=== PATIENT | female | born 1950 | race Caucasian/White ===

== ENCOUNTER → 2020-02-18 | Outpatient (CLI) | payer OTHER ==
[~2020-02-18] MED LIST: ASPI81CH; CODACE30 PO; FLUO20 PO; INDO25 PO; LOVA20 PO; OLAN7.5 PO; OMEG1CAP30 PO; [UNRECOGNIZED DRUG - SUPPLY] MC
== END | disposition home or self-care (01) ==
LOC: PLD 15:20 → LAB SHORT 15:20
DX: D37.030 Neoplasm of uncertain behavior of the parotid salivary glands (principal)
CPT/HCPCS: 88173

== ENCOUNTER → 2021-05-15 | Outpatient (CLI) | payer OTHER ==
[2021-05-15 14:25] LABS: BASOPHILS ABSOLUTE AUTO 0.05 K/mm3 (0.00-0.23); BASOPHILS PERCENT AUTO 1 % (0-2); EOSINOPHILS ABSOLUTE AUTO 0.08 K/mm3 (0.00-0.68); EOSINOPHILS PERCENT AUTO 1 % (0-6); Hematocrit 40.9 % (33.0-51.0); Hemoglobin 13.7 g/dL (11.5-16.0); IMMATURE GRAN ABSOLUTE AUTO 0.02 K/mm3 (0.00-0.10); IMMATURE GRAN PERCENT AUTO 0 % (0-1); LYMPHOCYTES PERCENT AUTO 26 % (21-46); MONOCYTES ABSOLUTE AUTO 0.53 K/mm3 (0.16-1.47); MONOCYTES PERCENT AUTO 8 % (4-13); Mean Corpuscular HGB 33.8 pg (26.0-34.0); Mean Corpuscular HGB Conc 33.5 g/dL (31.5-36.5); Mean Corpuscular Volume 101 fL (80-100); Mean Platelet Volume 9.8 fL (9.1-12.4); NEUTROPHILS ABSOLUTE AUTO 4.45 K/mm3 (1.96-9.15); NEUTROPHILS PERCENT AUTO 64 % (41-73); Platelet Count 350 K/mm3 (150-400); RDW Standard Deviation 48.4 fL (35.1-46.3); Red Blood Cell Count 4.05 M/mm3 (3.80-5.20); White Blood Cell Count 6.93 K/mm3 (4.00-11.30)
[2021-05-15 14:34] LABS: Alanine Aminotransfer (ALT/SGP 30 U/L (12-78); Albumin, Blood 3.8 g/dL (3.4-5.0); Albumin/Globulin Ratio 1.2 (0.8-1.8); Alk Phos 49 U/L (40-126); Anion Gap 9 mmol/L (6-16); Aspartate Aminotrans (AST/SGOT 34 U/L (12-37); Bilirubin, Total 0.6 mg/dL (0.1-1.0); Blood Urea Nitrogen 10 mg/dL (8-24); Bun/Creatinine Ratio 12.2 (12.0-20.0); CO2, Blood 28 mmol/L (21-32); Calcium, Blood 9.3 mg/dL (8.5-10.1); Chloride, Blood 102 mmol/L (98-108); Creatinine, Blood 0.82 mg/dL (0.40-1.00); Globulin, Blood 3.2 g/dL (2.2-4.0); Glomerular Filtration Rate >60 (60-); Glucose, Blood 91 mg/dL (70-99); Potassium, Blood 3.9 mmol/L (3.5-5.5); Sodium, Blood 139 mmol/L (136-145)
== END ==
LOC: LAB SHORT 14:20
PROVIDERS: Physician Assistant
DX: R42 Dizziness and giddiness (principal); N39.0 Urinary tract infection, site not specified
CPT/HCPCS: 80053; 85025

== ENCOUNTER 2021-05-22 07:56 | Observation (INO) | payer OTHER ==
[~2021-05-22] VITALS: Ht 154.9 cm; Wt 80.5 kg
[~2021-05-22 07:56] MED LIST changes: -FLUO20 PO; +FLUOXETINE HCL60 MG PO; -OMEG1CAP30 PO; +OMEGA 3 PO
[2021-05-22] MEDS ORDERED: Methocarbamol500 MG PO (08:12)
[2021-05-22 08:31] LABS: BASOPHILS ABSOLUTE AUTO 0.06 K/mm3 (0.00-0.23); BASOPHILS PERCENT AUTO 1 % (0-2); EOSINOPHILS ABSOLUTE AUTO 0.09 K/mm3 (0.00-0.68); EOSINOPHILS PERCENT AUTO 1 % (0-6); Hematocrit 41.3 % (33.0-51.0); Hemoglobin 13.3 g/dL (11.5-16.0); IMMATURE GRAN ABSOLUTE AUTO 0.03 K/mm3 (0.00-0.10); IMMATURE GRAN PERCENT AUTO 0 % (0-1); LYMPHOCYTES ABSOLUTE AUTO 0.94 K/mm3 (0.84-5.20); LYMPHOCYTES PERCENT AUTO 8 % (21-46); MONOCYTES ABSOLUTE AUTO 0.72 K/mm3 (0.16-1.47); MONOCYTES PERCENT AUTO 6 % (4-13); Mean Corpuscular HGB 33.3 pg (26.0-34.0); Mean Corpuscular HGB Conc 32.2 g/dL (31.5-36.5); Mean Corpuscular Volume 103 fL (80-100); Mean Platelet Volume 10.1 fL (9.1-12.4); NEUTROPHILS ABSOLUTE AUTO 10.53 K/mm3 (1.96-9.15); NEUTROPHILS PERCENT AUTO 85 % (41-73); Platelet Count 327 K/mm3 (150-400); RDW Coefficient Variation 13.2 % (11.7-14.2); RDW Standard Deviation 51.3 fL (35.1-46.3); White Blood Cell Count 12.37 K/mm3 (4.00-11.30)
[2021-05-22 08:55] LABS: Alanine Aminotransfer (ALT/SGP 22 U/L (12-78); Albumin, Blood 3.3 g/dL (3.4-5.0); Albumin/Globulin Ratio 0.8 (0.8-1.8); Alk Phos 50 U/L (50-136); Anion Gap 5 mmol/L (6-16); Aspartate Aminotrans (AST/SGOT 27 U/L (12-37); Bilirubin, Total 0.5 mg/dL (0.1-1.0); Blood Urea Nitrogen 20 mg/dL (8-24); Bun/Creatinine Ratio 27.1 (12.0-20.0); CO2, Blood 27 mmol/L (21-32); Calcium, Blood 9.1 mg/dL (8.5-10.1); Chloride, Blood 108 mmol/L (98-108); Creatinine, Blood 0.74 mg/dL (0.40-1.00); Globulin, Blood 4.3 g/dL (2.2-4.0); Glomerular Filtration Rate >60 (60-); Glucose, Blood 107 mg/dL (70-99); Magnesium, Blood 2.4 mg/dL (1.6-2.4); Sodium, Blood 140 mmol/L (136-145); Total Protein, Blood 7.6 g/dL (6.4-8.2)
[2021-05-22 10:03] LABS: Source, Urine Clean Catch
[2021-05-22 10:22] LABS: Appearance, Urine Hazy (Clear); Bilirubin, Urine Neg (Neg); Blood, Urine 4+ (Neg); Color, Urine Yellow (P-Yellow); Glucose Qualitative, Urine Neg (Neg); Ketones, Urine 3+ (Neg); Leukocyte Esterase, Urine 3+ (Neg); Nitrite, Urine Neg (Neg); Protein, Urine 2+ (Neg); Urobilinogen, Urine NORM (Normal)
[2021-05-22 10:27] LABS: Bacteria Many /hpf; Red Blood Cells, Urine 25-50 /hpf (0-2); Squamous Epithelial Cells Many /hpf (Few); Transitional Epithelial Cells Few /hpf (0-Rare); White Blood Cells, Urine 50-100 /hpf (0-5)
[2021-05-22] MEDS ORDERED: ACET325 PO (13:34)
[2021-05-22] MEDS ORDERED: Vitamin D1000 UNI1 PO (13:37)
--- NOTE | 2021-05-22 13:45 | NUR ---
REPORT RECEIVED FROM AGATHA BELTRAN. PT TX TO ROOM 341. PT ABLE TO TX WITH 2 ASSIST TO BED. PT A/O X 4, ANSWERS QUESTIONS APPROP. PT ORIENTED TO RM CALL, LIGHT, BED ALARM ON AND BED IN LOW POSITION. PT REPORTED SHE WAS HUNGRY. DIET ORDER TIME CHANGED SO SHE CAN EAT LUNCH. PT TOLERATING PO INTAKE WELL AT THIS TIME. DAUGHTER SUSHMA PRESENT.
--- NOTE | 2021-05-22 18:05 | NUR ---
SHIFT SUMMARY: PT A/O X 4 ON BEDREST. VERY WEAK AND SHAKY WHEN UP TO BSC SO USED BEDPAN FOR URINATION. PT IS EXPERIENCING FREQUENCY WITH URINATION SO PURWICK ADDED FOR HER COMFORT. PT DENIES PAIN AT THIS TIME. ABRASION TO L KNEE CLEANSED WITH WOUND CLEANSER AND PATTED DRY WITH GAUZE. APPLIED DRESSING. NO S/S OF INFECTION AT SITE, SCANT DRAINAGE NOTED. PT PLEASANT AND COOPERATIVE WITH CARES.
--- NOTE | 2021-05-23 07:35 | NUR ---
SHIFT SUMMARY: PATIENT REMAINED A/OX4- OCCASSIONAL REPORTS OF HEADACHE AT SITE WHERE HEAD WAS STRUCK DURING FALL- RELIEVED WITH ACETAMINOPHEN. NO OTHER NEUROLOGICAL CHANGES NOTED. CONTINUED GENERALIZED WEAKNESS. PT HAD 2 EPISODES OF DIARRHEA DURING THIS SHIFT. BED ALARM ACTIVATED, PATIENT CALLS APPROPRIATELY, BED IN LOW POSITION, CALL CARBAJAL AND BELONGINGS IN REACH.
[2021-05-23] MEDS ORDERED: VISBIOME 112.51 EACH PO (13:31)
[2021-05-23] MEDS ORDERED: LOPE2C PO (13:31)
[2021-05-23] MEDS ORDERED: CEFU500T30 PO (13:32)
--- NOTE | 2021-05-23 19:13 | NUR ---
SHIFT SUMMARY: PATIENT ADMITTED YESTERDAY WITH INTRACRANIAL HEMORRHAGE, NEW DX OF BRAIN CANCER METASTASES, AND A UTI. PATIENT IS CURRENTLY A/O X4. SHE WAS INITIALLY VERY WEAK, BUT WAS ABLE TO TRANSFER FROM THE BED TO THE [facility] WITH A WALKER AND GAIT BELT. PATIENT IS EXPERIENCING URINARY FREQUENCY DUE TO HER UTI, SO A PURE WICK WAS PLACED. PATIENT REPORTED EXPERIENCING PAIN TO THE RIGHT SIDE OF HER HEAD, SO OXYCODONE WAS ADMINISTERED, WHICH BROUGHT HER PAIN FROM AN 8/10 TO A 5/10. PATIENT IS NOW RESTING COMFORTABLY IN BED.
--- NOTE | 2021-05-23 19:25 | NUR ---
REVIEWED STUDENT SHEEP AND WHEAT FARMER AND AGREE WITH DOCUMENTATION
[2021-05-24 09:11] LABS: Hematocrit 42.6 % (33.0-51.0); Hemoglobin 13.8 g/dL (11.5-16.0); Mean Corpuscular HGB 33.3 pg (26.0-34.0); Mean Corpuscular HGB Conc 32.4 g/dL (31.5-36.5); Mean Corpuscular Volume 103 fL (80-100); Platelet Count 348 K/mm3 (150-400); RDW Standard Deviation 49.4 fL (35.1-46.3); Red Blood Cell Count 4.14 M/mm3 (3.80-5.20); White Blood Cell Count 7.71 K/mm3 (4.00-11.30)
--- NOTE | 2021-05-24 16:36 | NUR ---
REVIEWED STUDENT BRANCH OR DEPARTMENT CHIEF LIBRARIAN AND CHARTING AND AGREE WITH DOCUMENTATION.
--- NOTE | 2021-05-24 18:16 | NUR ---
SHIFT SUMMARY: PATIENT ADMITTED ON 05/22/21 WITH HEMORRHAGE ENCLOSED WITHIN A BRAIN METASTASIS, WELL A UTI. PATIENT IS CURRENTLY A/0 X4. SHE WAS INITIALLY VERY WEAK, BUT IS IMPROVING AND HAS BEEN ABLE TO AMBULATE TO THE CHAIR AND BSC WITH 1 PERSON ASSISTANCE USING THE GAIT BELT AND WALKER. PATIENT IS EXPERIENCING URINARY URGENCY AND FREQUENCY, BUT HAS BEEN CONTINENT AND HAS NOT NEEDED TO USE THE PURE WICK TODAY. SHE WAS BEING TREATED WITH ROCEPHIN, BUT THIS WAS DISCONTINUED BY DR. PATINO. THE PATIENT'S IV AND TELEMETRY HAS ALSO BEEN DISCONTINUED. SHE REPORTS EXPERIENCING AN INTERMITTENT HEADACHE TO THE RIGHT SIDE OF HER HEAD, WHICH WAS TREATED WITH 1 DOSE OF TYLENOL DURING MY SHIFT. THIS PROVIDED SOME GOOD RELIEF. THE PATIENT IS NOW RESTING COMFORTABLY IN BED.
--- NOTE | 2021-05-25 06:07 | NUR ---
SHIFT SUMMARY: NO SIGNIFICANT EVETNS ON NOC. PATIENT SLEPT WELL THROUGH THE NIGHT, AMBULATED 1PA TO [facility] AT BEGINING FO SHIFT AND THEN REQUESTED PURE WICK. PATIENT COMPLAINED OF LEG PAIN AND FEELING EXHAUSTED. PROVIDED TYLENOL PER EMAR. WCTM.
--- NOTE | 2021-05-25 16:50 | NUR ---
SHIFT SUMMARY PT IS CALM AND COOPERATIVE WITH CARE. A/O X 4. AMBULATES WITH 1 ASSIST TO CHAIR AND BEDSIDE COMMODE. PT REPORTED NAUSEA IN AM. MEDICATED WITH ZOFRAN. NO COMPLAINTS OF PAIN THIS SHIFT. AWAITING PLACEMENT AT REHAB FACILITY.
--- NOTE | 2021-05-25 17:16 | NUR ---
PLEASE REFER TO STUDENT NOTE FOR SHIFT SUMMARY. THIS SEAL EXTRUSION OPERATOR HAS REVIEWED NOTES AND ASSESSMENTS AND AGREES WITH THEM.
--- NOTE | 2021-05-26 06:24 | NUR ---
SHIFT SUMMARY: NO SIGNIFICANT EVENTS ON NOC. PAIN TREATED PER EMAR. PATIENT REQUESTED PUREWICK AT START OF SHIFT. PATIENT ENCOURAGED TO AMBULATE TO BATHROOM AND EDUCATION REINFORCED. SHE SLEPT WELL THROUGH THE NIGHT. WCMIGUEL.
--- NOTE | 2021-05-26 10:42 | NUR ---
RN NOTE MS CORTES IS A&OX4. NO SOB. HEADACHE, MOSTLY R SIDED 08/22. NOT HELPED BY TYLENOL SO OXY 5MG GIVEN AND AWAITING RESPONSE. UP TO BR, 1 PERSON ASSIST WITH WALKER, SAT UP FOR BREAKFAST FOR APPROX 2 HOURS. BED LOW, CALL LIGHT IN REACH.
--- NOTE | 2021-05-26 19:00 | NUR ---
SHIFT SUMMARY MS CORTES IS ALERT AND ORIENTED X4. SHE HAS A CONSTANT HEADACHE, TYLENOL DIDN'T HELP THIS MORNING, BUT OXY TOOK IT DOWN TO TOLERABLE LEVEL. SHE HAS BEEN UP TO THE BATHROOM AND CHAIR WITH ONE PERSON ASSIST AND WALKER/GAIT BELT. SHE STRUGGLES TO GET HERSELF UP OUT OF BED AND NEEDS FREQUENT REASSURANCE AND REMINDERS WHILE WALKING AND SITTING/ STANDING. SHE WAS PREPARED TO GO HOME TODAY WITH HOSPITAL BED SET UP, TO STAY WITH HER DAUGHTER. MS CORTES'S DAUGHTER WAS NOT COMFORTABLE TAKING HER HOME WITHOUT THE HOSPITAL BED BEING IN PLACE AND THERE WAS A DELAY IN DELIVERY. MD INFORMED BY SIMULATION SOFTWARE ENGINEER. HOBBIES AND CRAFTS SALES REPRESENTATIVE HELPING TO FACILITATE BED DELIVERY. BED LOW, CALL LIGHT IN REACH.
--- NOTE | 2021-05-27 05:57 | NUR ---
SHIFT SUMMARY: NO SIGNFICANT EVENTS ON NOC. COMPLAINT OF VITALE TREATED PER EMAR. [facility] TO [facility] WITH [facility]. AWAITING HOSPITAL BED DELIVERY TO HOME SO SHE CAN DISCHARGE.
[2021-05-27] MEDS ORDERED: ONDA4 PO (11:37)
--- NOTE | 2021-05-27 14:10 | NUR ---
DISCHARGE SUMMARY: PT DISCHARGED TODAY HOME W/HH. PT CHOSE [facility]. WHEELCHAIR WAS DELIVERED TO PT BY KEIRA PRIOR TO DC. PT HOSPITAL BED WAS DELIVERED TO HER HOME TODAY PRIOR TO DC. STUDENT RN KARLEY EDUCATED PT AND DAUGHTER SUSHMA ON DC INSTRUCTIONS, MEDICATIONS AND FOLLOW-UP PLAN. PT AND SUSHMA MATUTE. ASSISTED PT WITH GETTING DRESSED AND PACKING UP HER BELONGINGS. ASSISTED PT INTO POV 2 PERSON ASSIST W/GAIT BELT. DAUGHTER AND FRIEND WERE WITH PT.
== END 2021-05-27 14:00 | disposition home health service (06) ==
LOC: ER 07:56 → MEDS 11:22 → ENPENDDIS 05-23 15:50 → MEDS 05-27 14:00
PROVIDERS: Internal Medicine; Student in an Organized Health Care Education/Training Program; ADMIT Internal Medicine
DX: C79.31 Secondary malignant neoplasm of brain (principal); S09.90XA Unspecified injury of head, initial encounter; W19.XXXA Unspecified fall, initial encounter; N39.0 Urinary tract infection, site not specified; B96.20 Unspecified Escherichia coli [E. coli] as the cause of diseases classified elsewhere; R26.89 Other abnormalities of gait and mobility; R53.1 Weakness; E78.5 Hyperlipidemia, unspecified; F17.210 Nicotine dependence, cigarettes, uncomplicated; Z85.118 Personal history of other malignant neoplasm of bronchus and lung; Z85.3 Personal history of malignant neoplasm of breast; Z88.2 Allergy status to sulfonamides; Z79.82 Long term (current) use of aspirin; Z79.899 Other long term (current) drug therapy
CPT/HCPCS: 36415; 70450; 70496; 71046; 72125; 80053; 81001; 83735; 85025; 85027; 87086; 93005; 93010; 96374; 96375; 96376; 97110; 97116; 97161; 97530; 99285-25; A9270; G0378; J0696; J2405; J7030; Q9967

== ENCOUNTER 2021-07-12 13:33 | Inpatient (IN) | payer OTHER ==
[~2021-07-12] VITALS: Ht 172.7 cm; Wt 81.7 kg
[~2021-07-12 13:33] MED LIST changes: +ACET325 PO; +CEFU500T30 PO; +LOPE2C PO; +Methocarbamol500 MG PO; +ONDA4 PO; +VISBIOME 112.51 EACH PO; +Vitamin D1000 UNI1 PO
[2021-07-12 14:14] LABS: Albumin, Blood 1.7 g/dL (3.4-5.0); Albumin/Globulin Ratio 0.3 (0.8-1.8); Bilirubin, Total 0.7 mg/dL (0.1-1.0); Bun/Creatinine Ratio 25.9 (12.0-20.0); Calcium, Blood 8.9 mg/dL (8.5-10.1); Creatinine, Blood 1.08 mg/dL (0.40-1.00); Globulin, Blood 5.2 g/dL (2.2-4.0); Potassium, Blood 4.1 mmol/L (3.5-5.5); Total Protein, Blood 6.9 g/dL (6.4-8.2)
[2021-07-12 14:52] LABS: Hematocrit 33.5 % (33.0-51.0); Hemoglobin 11.1 g/dL (11.5-16.0); Mean Corpuscular HGB 32.8 pg (26.0-34.0); Mean Corpuscular HGB Conc 33.1 g/dL (31.5-36.5); Mean Corpuscular Volume 99 fL (80-100); Mean Platelet Volume 10.8 fL (9.1-12.4); Platelet Count 77 K/mm3 (150-400); RDW Coefficient Variation 13.9 % (11.7-14.2); RDW Standard Deviation 50.8 fL (35.1-46.3); Red Blood Cell Count 3.38 M/mm3 (3.80-5.20)
[2021-07-12 14:59] LABS: International Normalized Ratio 1.43; Prothrombin Time Results 14.7 Sec (9.7-11.5)
[2021-07-12 15:04] LABS: White Blood Cell Count 0.13 K/mm3 (4.00-11.30)
[2021-07-12 15:07] LABS: Source, Urine Foley catheter
[2021-07-12 15:23] LABS: BASOPHILS PERCENT MAN 0 % (0-2); EOSINOPHILS PERCENT MAN 7 % (0-6); LYMPHOCYTES ABSOLUTE MAN 0.12 K/mm3 (0.84-5.20); LYMPHOCYTES PERCENT MAN 93 % (21-46); MONOCYTES PERCENT MAN 0 % (4-13); TOTAL CELLS COUNTED 15
[2021-07-12 15:33] LABS: PCO2 Arterial 46.7 mmHg (35-45); PO2 Arterial 92.1 mmHg (80-100); pH Blood Arterial 7.34 (7.35-7.45)
[2021-07-12 15:35] LABS: Appearance, Urine Clear (Clear); Bilirubin, Urine Neg (Neg); Blood, Urine 4+ (Neg); Color, Urine Yellow (P-Yellow); Glucose Qualitative, Urine Neg (Neg); Ketones, Urine Neg (Neg); Leukocyte Esterase, Urine Neg (Neg); Nitrite, Urine Neg (Neg); Protein, Urine 2+ (Neg); Specific Gravity, Urine 1.015 (1.003-1.022); Urobilinogen, Urine 3+ (Normal)
[2021-07-12 15:40] LABS: BAND PERCENT MAN 0 % (0-8); SEG NEUTROPHILS PERCENT MAN 0 % (41-73)
[2021-07-12 16:08] LABS: Bacteria Mod /hpf; Mucus Heavy (0-Heavy); Squamous Epithelial Cells Not Seen /hpf (Few)
--- NOTE | 2021-07-12 19:24 | NUR ---
PT ARRIVED FROM ED WITH BIPAP IN PLACE, AVAPS SETTING AT 10 WITH 70% FIO2. ACCESSORY MUSCLE AND SHOULDER MOVEMENT NOTED. PT GRUNTING ON EXHALATION. PT'S SKIN IS PALE AND COOL, ESPECIALLY IN FEET. DOPPLERS NEEDED FOR BILATERAL PULSES IN FEET. WARM BLANKET APPLIED TO HAND FOR SPO2 MONITORING TO IMPROVE READING. PT RAISES EYEBROW WHEN NAME IS CALLED AND MOVES LEFT ARM BUT NO PURPOSEFUL MOVEMENT. SINUS TACH IN 130S. BPS UPON ARRIVAL 130S/100S. SPOKE WITH DR MONTANEZ REGARDING PT'S CONDITION. DR AWARE THAT LEVOPHED WAS ORDERED IF NEEDED. SHORTLY AFTER THIS PHONE CALL, PT'S BP STARTED TO DROP WITH SBPS 50S-60S. LEVOPHED STARTED AT 5MCG/HR. EVENTUALLY INCREASED TO 10MCG/HR. BPS CONTINUED TO DROP WITH MAPS BARELY IN 60S. CALL TO DR MONTANEZ TO LET HIM KNOW THAT CENTRAL LINE WILL BE NEEDED. RT CAME TO BEDSIDE AT SHIFT CHANGE AND PT WAS MOVED TO ROOM 4 FOR BIGGER SPACE FOR CENTRAL LINE PLACEMENT. DR MONTANEZ, NIGHT RN AND RT AT BEDSIDE PLACING LINE. NEUTROPENIC PRECAUTIONS DUE TO DECREASED WBC
[2021-07-12 19:31] LABS: PCO2 Arterial 59.1 mmHg (35-45)
[2021-07-12 19:50] LABS: Hematocrit 32.6 % (33.0-51.0); Hemoglobin 10.2 g/dL (11.5-16.0); Mean Corpuscular HGB 32.2 pg (26.0-34.0); Mean Corpuscular HGB Conc 31.3 g/dL (31.5-36.5); Mean Corpuscular Volume 103 fL (80-100); Mean Platelet Volume 10.8 fL (9.1-12.4); Platelet Count 59 K/mm3 (150-400); RDW Coefficient Variation 14.2 % (11.7-14.2); RDW Standard Deviation 53.9 fL (35.1-46.3); Red Blood Cell Count 3.17 M/mm3 (3.80-5.20)
[2021-07-12 19:53] LABS: BASOPHILS PERCENT AUTO 0 % (0-2); EOSINOPHILS ABSOLUTE AUTO 0.01 K/mm3 (0.00-0.68); EOSINOPHILS PERCENT AUTO 14 % (0-6); IMMATURE GRAN PERCENT AUTO 0 % (0-1); LYMPHOCYTES ABSOLUTE AUTO 0.06 K/mm3 (0.84-5.20); LYMPHOCYTES PERCENT AUTO 86 % (21-46); MONOCYTES PERCENT AUTO 0 % (4-13); NEUTROPHILS PERCENT AUTO 0 % (41-73)
[2021-07-12 19:54] LABS: White Blood Cell Count 0.07 K/mm3 (4.00-11.30)
[2021-07-12 20:19] LABS: Albumin, Blood 1.2 g/dL (3.4-5.0); Albumin/Globulin Ratio 0.3 (0.8-1.8); Bilirubin, Total 0.6 mg/dL (0.1-1.0); Bun/Creatinine Ratio 25.6 (12.0-20.0); Calcium, Blood 7.3 mg/dL (8.5-10.1); Creatinine, Blood 1.21 mg/dL (0.40-1.00); Globulin, Blood 3.7 g/dL (2.2-4.0)
[2021-07-12 20:20] LABS: Total Protein, Blood 4.9 g/dL (6.4-8.2)
[2021-07-12 20:59] LABS: PCO2 Arterial 56.1 mmHg (35-45); PO2 Arterial 68.2 mmHg (80-100); pH Blood Arterial 7.21 (7.35-7.45)
--- NOTE | 2021-07-12 22:00 | NUR ---
MULTIPLE SMALL OPEN SORES NOTED TO PT'S BUTTOCKS AND PEEWEE ANAL AREA WELL HEMORRHOIDS AND GENERALIZED REDNESS TO THE PERIANAL AREA. SEE PICTURE IN CHART.
[2021-07-12 23:02] LABS: Source, Urine Foley catheter
[2021-07-12 23:04] LABS: Bilirubin, Urine Neg (Neg); Blood, Urine 3+ (Neg); Glucose Qualitative, Urine Neg (Neg); Ketones, Urine Neg (Neg); Leukocyte Esterase, Urine Neg (Neg); Nitrite, Urine Neg (Neg); Protein, Urine 3+ (Neg); Urobilinogen, Urine 2+ (Normal)
[2021-07-12 23:18] LABS: Appearance, Urine Hazy (Clear); Color, Urine Yellow (P-Yellow)
[2021-07-12 23:19] LABS: Bacteria Many /hpf; Hyaline Casts 0-2 /lpf (0-2); Squamous Epithelial Cells Not Seen /hpf (Few)
[2021-07-12 23:20] LABS: WBC Cast Rare /lpf (0)
[2021-07-13 02:48] LABS: PCO2 Arterial 62.1 mmHg (35-45)
[2021-07-13 02:49] LABS: PO2 Arterial 22.2 mmHg (80-100); pH Blood Arterial 6.93 (7.35-7.45)
[2021-07-13 03:11] LABS: Hematocrit 31.3 % (33.0-51.0); Hemoglobin 9.2 g/dL (11.5-16.0); Mean Corpuscular HGB 32.4 pg (26.0-34.0); Mean Corpuscular HGB Conc 29.4 g/dL (31.5-36.5); NRBC ABSOLUTE 0.02 K/mm3 (0.00-0.02); NRBC Auto 7.7 /100 WBC (0.0-0.2); RDW Coefficient Variation 14.4 % (11.7-14.2); RDW Standard Deviation 58.4 fL (35.1-46.3); Red Blood Cell Count 2.84 M/mm3 (3.80-5.20)
[2021-07-13 03:22] LABS: Magnesium, Blood 2.1 mg/dL (1.6-2.4)
[2021-07-13 03:26] LABS: BASOPHILS ABSOLUTE AUTO 0.01 K/mm3 (0.00-0.23); BASOPHILS PERCENT AUTO 4 % (0-2); EOSINOPHILS PERCENT AUTO 0 % (0-6); IMMATURE GRAN ABSOLUTE AUTO 0.03 K/mm3 (0.00-0.10); IMMATURE GRAN PERCENT AUTO 12 % (0-1); LYMPHOCYTES ABSOLUTE AUTO 0.17 K/mm3 (0.84-5.20); LYMPHOCYTES PERCENT AUTO 65 % (21-46); MONOCYTES ABSOLUTE AUTO 0.04 K/mm3 (0.16-1.47); MONOCYTES PERCENT AUTO 15 % (4-13); Mean Platelet Volume 12.1 fL (9.1-12.4); NEUTROPHILS ABSOLUTE AUTO 0.01 K/mm3 (1.96-9.15); NEUTROPHILS PERCENT AUTO 4 % (41-73)
--- NOTE | 2021-07-13 03:35 | NUR ---
SHIFT SUMMERY: PT REQUIRING INCREASING AMOUNTS OF LEVOPHED SO CVC WAS PLACED IN RIGHT GROIN BY DR. MONTANEZ. PT WAS THEN GIVEN 100MG OF PROPOFOL BY DR. MONTANEZ IVP AND AN ETT WAS PLACED AND PT PLACED ON THE VENTILATOR. FROM [id number] PT REQUIRING ESCALLATING AMOUNTS OF VASSOPRESSORS. PT'S HR ALSO ELEVATED AND SO IT WAS ATTEMPTED TO WEAN OF OF LEVOPHED AND ONTO MAYO, BUT THE PT REQUIRED ECALATING DOSES OF BOTH MAYO AND LEVO. DR. MONTANEZ AND DR. CORNEJO WERE CONSUTED DUE TO INCREASED HR AND DIMINISHED URINE OUT PUT. AT 0215 PT'S DAUGHTER WAS CALLED AND NOTIFED OF PT'S DECLINING STATUS. 0245 PT AT 40MCG/MINUTE OF LEVOPHED AND 200MCG/MINUTE OF MAYO. PT'S DAUGHTER ARRIVED AT BEDSIDE AND WAS INFORMED OF THE SITUATION. PT'S DAUGHTER, SUSHMA, STATED THAT SHE FELT THIS IS FUTILE AND THAT SHE DOES NOT WANT THINGS TO CONTINUE LIKE THIS AND DECIDED TO TRANSITION TO COMFOR MEASURES ONLY. PT GIVEN 10MG OF MORPHINE AND 2MG OF ATIVAN AND THEN THE PT WAS EXTUBATED. PT'S DAUGHTER AND SIGNIFICANT OTHER CHOSE TO LEAVE BEDSIDE PRIOR TO EXTUBATION. PT EXTUBATED AT 0330 AND WAS PULSLESS AND APNEIC AT 0331. PT'S DAUGHTER NOTIFIED OF PT'S PASSING. DR. BELLA AND DR. MONTANEZ NOTIFIED OF PT'S PASSING. 0515: Jac RELESED BODY. 0615: LINES AND TUBES REMOVED.
[2021-07-13 03:43] LABS: Platelet Count 29 K/mm3 (150-400); White Blood Cell Count 0.26 K/mm3 (4.00-11.30)
[2021-07-13 03:44] LABS: Mean Corpuscular Volume 110 fL (80-100)
[2021-07-13 03:56] LABS: Albumin/Globulin Ratio 0.3 (0.8-1.8); Bilirubin, Total 0.7 mg/dL (0.1-1.0); Bun/Creatinine Ratio 21.6 (12.0-20.0); Calcium, Blood 8.6 mg/dL (8.5-10.1); Creatinine, Blood 1.53 mg/dL (0.40-1.00); Globulin, Blood 3.3 g/dL (2.2-4.0); Total Protein, Blood 4.3 g/dL (6.4-8.2)
[2021-07-13 03:58] LABS: Phosphorus, Blood 8.2 mg/dL (2.5-4.9)
[2021-07-13 03:59] LABS: Potassium, Blood 6.2 mmol/L (3.5-5.5)
== END 2021-07-13 07:25 | DRG 871 ==
LOC: ER 13:33 → ICUW 17:20 → ICUE 17:20
PROVIDERS: Emergency Medicine; Family Medicine; Internal Medicine Critical Care Medicine; ADMIT Internal Medicine
PROC: 3E03329 Introduction of Other Anti-infective into Peripheral Vein, Percutaneous Approach (ICD-10-PCS; principal; 2021-07-12)
PROC: 0BH18EZ Insertion of Endotracheal Airway into Trachea, Via Natural or Artificial Opening Endoscopic (ICD-10-PCS; 2021-07-12)
PROC: 3E033XZ Introduction of Vasopressor into Peripheral Vein, Percutaneous Approach (ICD-10-PCS; 2021-07-12)
PROC: 06HY33Z Insertion of Infusion Device into Lower Vein, Percutaneous Approach (ICD-10-PCS; 2021-07-12)
PROC: 5A09357 Assistance with Respiratory Ventilation, Less than 24 Consecutive Hours, Continuous Positive Airway Pressure (ICD-10-PCS; 2021-07-12)
PROC: 5A1935Z Respiratory Ventilation, Less than 24 Consecutive Hours (ICD-10-PCS; 2021-07-12)
DX: A41.9 Sepsis, unspecified organism (principal); J69.0 Pneumonitis due to inhalation of food and vomit; J96.01 Acute respiratory failure with hypoxia; J96.02 Acute respiratory failure with hypercapnia; R65.21 Severe sepsis with septic shock; G93.6 Cerebral edema; C79.31 Secondary malignant neoplasm of brain; C34.90 Malignant neoplasm of unspecified part of unspecified bronchus or lung; N17.9 Acute kidney failure, unspecified; Z20.822 Contact with and (suspected) exposure to COVID-19; Z51.5 Encounter for palliative care; D70.1 Agranulocytosis secondary to cancer chemotherapy; T45.1X5A Adverse effect of antineoplastic and immunosuppressive drugs, initial encounter; E86.0 Dehydration; D69.59 Other secondary thrombocytopenia; Z90.2 Acquired absence of lung [part of]; Z92.3 Personal history of irradiation; Z85.3 Personal history of malignant neoplasm of breast; Z90.49 Acquired absence of other specified parts of digestive tract; Z90.710 Acquired absence of both cervix and uterus; Z79.899 Other long term (current) drug therapy; Z87.891 Personal history of nicotine dependence
CPT/HCPCS: 31500; 36415; 36556; 36600; 51701; 51703; 70450; 71045; 71260; 80053; 81001; 82330; 82803; 82947; 83605; 83735; 83880; 84100; 84145; 84484; 85025; 85610; 87040; 87070; 87077; 87086; 87186; 87205; 93005; 93010; 94002; 94660; 96361; 96365; 96367; 96375; 99285-25; C1751; J0456; J0696; J1720; J2060; J2185; J2270; J2370; J2704; J3370; J7030; J7040; J7060; J7120; Q9967